=== PATIENT | female | born 2000 | race Caucasian/White ===

== ENCOUNTER 2022-01-28 21:34 | Outpatient (CLI) | payer OTHER ==
[~2022-01-28 21:34] MED LIST: IBUPROFEN600 MG PO
== END 2022-01-28 23:25 | disposition home or self-care (01) ==
LOC: GENOP 21:34
DX: O99.891 Other specified diseases and conditions complicating pregnancy (principal); M79.89 Other specified soft tissue disorders; O10.913 Unspecified pre-existing hypertension complicating pregnancy, third trimester; Z3A.36 36 weeks gestation of pregnancy; Z28.310 Unvaccinated for COVID-19; Z87.59 Personal history of other complications of pregnancy, childbirth and the puerperium
CPT/HCPCS: 81001; G0463

== ENCOUNTER 2022-03-16 05:20 | Emergency (ER) | payer OTHER ==
[2022-03-16 05:59] LABS: RED BLOOD COUNT 5.29 M/UL (4.00-5.10); WHITE BLOOD COUNT 10.6 K/UL (4.5-11.0)
[2022-03-16 06:17] LABS: BUN/CREATININE RATIO 11 (0-10)
[2022-03-16] MEDS ORDERED: BENTYL 20MG TAB20 MG PO (08:47)
== END 2022-03-16 08:54 | disposition home or self-care (01) ==
LOC: ER1 05:20
PROVIDERS: Physician Assistant
DX: R10.9 Unspecified abdominal pain (principal); Z88.1 Allergy status to other antibiotic agents; Z86.16 Personal history of COVID-19; Z20.822 Contact with and (suspected) exposure to COVID-19
CPT/HCPCS: 76705; 80053; 81001; 83690; 84703; 85025; 99284; U0002

== ENCOUNTER → 2022-04-11 | Day surgery (SDC) | payer OTHER ==
[~2022-04-11] VITALS: Ht 165.1 cm; Wt 108.9 kg
[~2022-04-11] MED LIST changes: +BENTYL 20MG TAB20 MG PO; +HYDROCODON-ACE1 EAC4 PO
== END | disposition home or self-care (01) ==
LOC: OR 07:30
DX: K80.10 Calculus of gallbladder with chronic cholecystitis without obstruction (principal); J45.909 Unspecified asthma, uncomplicated; E66.9 Obesity, unspecified; Z88.1 Allergy status to other antibiotic agents
CPT/HCPCS: 84703; J1100; J1885; J2001; J2250; J2405; J2704; J2710; J3010; J3370; J7070